=== PATIENT | male | born 2000 | race American Indian/Alaskan Native ===

== ENCOUNTER 2021-09-24 19:14 | Emergency (ER) | payer SELFPAY ==
[2021-09-24] MEDS ORDERED: Metoprolol Tartrate 5 MG/5 ML SDV IVPUSH ONE (19:31)
[2021-09-24] MEDS ORDERED: methylPREDNISolone Sodium Succinate 125 MG/2 ML SDV IVPUSH ONE (19:44)
[2021-09-24] MEDS ORDERED: diphenhydrAMINE 50 MG/ML SDV IVPUSH ONE (19:44)
--- NOTE | 2021-09-24 21:09 | EDM.PDOC ---
ED HPI GENERAL MEDICAL PROBLEM - General Chief Complaint: Allergic Reaction Stated Complaint: SPOKE TO NURSE Time Seen by Provider: 09/24/21 19:20 - History of Present Illness INITIAL COMMENTS - FREE TEXT/NARRATIVE: HISTORY AND PHYSICAL: History of present illness: This is a 20-year-old gentleman who presents ER today secondary to concern that he might have an allergic reaction of unclear etiology. Patient reports that occurred shortly after eating tacos. Patient reports he has felt anxious and jittery and feels a cough ever since. Patient has any recent fevers, shakes, chills, nausea, vomiting, diarrhea, dysuria, frequency, urgency. Patient has no history of allergies in the past. Patient has no history of anxiety in the past. Review of systems: As per history of present illness and below otherwise all systems reviewed and negative. Past medical history: As per history of present illness and as reviewed below otherwise noncontributory. Surgical history: As per history of present illness and as reviewed below otherwise noncontributory. Social history: No reported history of drug abuse. Family history: As per history of present illness and as reviewed below otherwise noncontributory. Physical exam: This patient was seen and evaluated during the 2019 SARS-CoV-2 novel coronavirus pandemic period. Community viral transmission is ongoing at time of this encounter and the emergency department is operating under pandemic response procedures. Constitutional: Patient is oriented to person, place, and time. Appears well- developed and well-nourished. No distress. HEENT: Moist mucous membranes Head: Normocephalic and atraumatic Eyes: Right eye exhibits no discharge. Left eye exhibits no discharge. No scleral icterus Neck: Normal range of motion. No tracheal deviation present. Cardiovascular: Normal rate and regular rhythm. Pulmonary: Effort normal, no respiratory distress. Abdominal: No distention Musculoskeletal: Normal range of motion Neurologic: Alert and oriented to person, place and time. Skin: [place], warm and dry. No rash identified. Patient's oropharynx is clear without any angioedema or swelling. Patient's lungs are without wheezing rales or rhonchi. Patient has no stridor. Aside from the patient's symptoms, he has no objective signs of allergy. Patient does appear to be somewhat anxious and jittery. Psychiatric: Appears anxious and jittery judgment and thought content normal. Nursing note and vital signs have been reviewed Diagnostics: [] Therapeutics: Benadryl, prednisone Assessment and plan: 20-year-old gentleman who presents ER today with possible allergic reaction. Patient reports that he feels a tickle in the back of his throat with a cough and feels extremely jittery. Patient was given a dose of Benadryl and prednisone here in the ED and monitored for approximately 2 hours without any worsening symptoms. Patient reports that his symptoms have resolved and he is currently sleeping and feels much better. Patient's jitteriness has resolved and he is resting. Patient's blood pressure is normalized. Patient be discharged home with a prescription for prednisone and Benadryl to take over the next 2 days. Definitive disposition and diagnosis as appropriate pending reevaluation and review of above. - Related Data Allergies Allergy/AdvReac Type Severity Reaction Status Date / Time No Known Allergies Allergy Verified 09/24/21 19:21 Home Meds: Home Meds diphenhydrAMINE [Benadryl] 50 mg PO Q6HR PRN #20 cap 09/24/21 [Rx] predniSONE [Prednisone] 50 mg PO DAILY #5 tablet 09/24/21 [Rx] Past Medical History - Past Health History Medical/Surgical History: Denies Medical/Surgical History Psychiatric History: Reports: Anxiety - Infectious Disease History Infectious Disease History: Reports: None Social & Family History - Family History Family Medical History: No Pertinent Family History - Tobacco Use Tobacco Use Status *Q: Never Tobacco User - Caffeine Use Caffeine Use: Reports: None - Recreational Drug Use Recreational Drug Use: No ED ROS ALLERGIC REACTION - Review of Systems Review Of Systems: See Below ED EXAM GENERAL NO PERIP PULSE - Physical Exam Exam: See Below Course - Vital Signs Last Recorded V/S: Last Vital Signs Temp 97.3 F 09/24/21 19:22 Pulse 87 09/24/21 20:06 Resp 17 09/24/21 20:03 BP 149/85 H 09/24/21 20:06 Pulse Ox 98 09/24/21 20:03 - Orders/Labs/Meds Meds: Medications Discontinued Medications Generic Name Dose Route Start Last Admin Trade Name Freq PRN Reason Stop Dose Admin Diphenhydramine HCl 50 mg 09/24/21 19:44 09/24/21 19:57 Diphenhydramine 50 Mg/Ml Sdv IVPUSH 09/24/21 19:45 50 mg ONETIME ONE Administration Methylprednisolone Sodium Succinate 125 mg 09/24/21 19:44 09/24/21 19:57 Methylprednisolone Sodium Succinate 125 Mg/2 Ml Sdv IVPUSH 09/24/21 19:45 125 mg ONETIME ONE Administration Metoprolol Tartrate 5 mg 09/24/21 19:31 09/24/21 20:06 Metoprolol Tartrate 5 Mg/5 Ml Sdv IVPUSH 09/24/21 19:32 Not Given ONETIME ONE Departure - Departure Time of Disposition: 21:07 Disposition: Home, Self-Care 01 Condition: Good Clinical Impression: Allergic reaction, Anxiety - Discharge Information Instructions: Allergies, Adult, [id number] Referrals: Rupert Givens,Alex [Primary Care Provider] - Additional Instructions: You were seen and evaluated in the ER today secondary to possible allergic reaction. This is likely resulted in you feeling extremely anxious and jittery. You are given a dose of Benadryl and prednisone here in the ED to help reverse the symptoms from an allergic reaction. You will be given a prescription for Benadryl to take for the next 2 days and prednisone to take for the next 5 days. Please make an appointment to follow-up with your doctor if your symptoms are not completely resolved in the next 1 to 2 days. The following information is given to patients seen in the emergency department who are being discharged to home. This information is to outline your options for follow-up care. We provide all patients seen in our emergency department with a follow-up referral. The need for follow-up, as well as the timing and circumstances, are variable depending upon the specifics of your emergency department visit. If you don't have a primary care physician on staff, we will provide you with a referral. We always advise you to contact your personal physician following an emergency department visit to inform them of the circumstance of the visit and for follow-up with them and/or the need for any referrals to a consulting specialist. The emergency department will also refer you to a specialist when appropriate. This referral assures that you have the opportunity for follow-up care with a specialist. All of these measure are taken in an effort to provide you with optimal care, which includes your follow-up. Under all circumstances we always encourage you to contact your private physician who remains a resource for coordinating your care. When calling for follow-up care, please make the office aware that this follow-up is from your recent emergency room visit. If for any reason you are refused follow-up, please contact the [facility] Emergency Department at and asked to speak to the emergency department charge nurse. [facility] [address] [place] [id number] [id number] Sepsis Event Note (ED) - Evaluation Sepsis Screening Result: No Definite Risk - Focused Exam Vital Signs: Vital Signs Temp Pulse Pulse Resp BP BP Pulse Ox 09/24/21 20:06 87 149/85 H 09/24/21 20:03 87 17 149/85 H 98 09/24/21 19:22 97.3 F 117 H 18 140/108 H 98
== END 2021-09-24 21:23 | disposition home or self-care (01) ==
LOC: MW.ED 19:14
DX: T78.40XA Allergy, unspecified, initial encounter (principal); F41.9 Anxiety disorder, unspecified
CPT/HCPCS: 96374; 96375; 99283; J1200; J2930